=== PATIENT | male | born 2000 | race American Indian/Alaskan Native ===

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

== ENCOUNTER 2021-07-01 01:47 | Emergency (ER) | payer SELFPAY ==
[2021-07-01 03:06] VITALS: BP 125/69
== END 2021-07-01 06:35 | disposition left against medical advice (07) ==
LOC: ED 01:47
DX: S82.90XA Unspecified fracture of unspecified lower leg, initial encounter for closed fracture (principal); Z53.21 Procedure and treatment not carried out due to patient leaving prior to being seen by health care provider